=== PATIENT | female | born 1975 | race Caucasian/White ===

== ENCOUNTER 2022-02-21 21:35 | Emergency (ER) | payer SELFPAY ==
[~2022-02-21] VITALS: Ht 170.1 cm; Wt 69.3 kg
[2022-02-21 21:35] VITALS: BP 120/61
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
[2022-02-21] MEDS ORDERED: HYDROcodone/APAP 5 MG/325 MG (LORTAB) TAB PO ONE (21:45)
[2022-02-21] MEDS ORDERED: HYDROcodone/APAP 5 MG/325 MG (LORTAB) TAB ONE (21:51)
--- NOTE | 2022-02-21 21:59 | Diagnostic Imaging Report ---
EXAM: Tibia fibula 2 view right INDICATION: Right ankle trauma and pain. COMPARISON: None. FINDINGS: No fracture or malalignment. Soft tissue shadows are unremarkable. IMPRESSION: No acute radiographic findings in the right tibia or fibula. Dictated by: Dictated on workstation # [id number]
== END 2022-02-21 22:14 | disposition home or self-care (01) ==
LOC: ER FS 21:45
DX: S87.81XA Crushing injury of right lower leg, initial encounter (principal); R20.0 Anesthesia of skin; S50.311A Abrasion of right elbow, initial encounter; Z72.0 Tobacco use; V86.55XA Driver of 3- or 4- wheeled all-terrain vehicle (ATV) injured in nontraffic accident, initial encounter; Y92.410 Unspecified street and highway as the place of occurrence of the external cause
CPT/HCPCS: 73590